=== PATIENT | male | born 1980 | race Caucasian/White ===

== ENCOUNTER 2020-10-30 12:07 | Inpatient (IN) | payer OTHER ==
[~2020-10-30] VITALS: Ht 167.6 cm; Wt 88.9 kg
[2020-10-30] MEDS ORDERED: COZAAR25 MG PO (12:35)
[2020-10-31] MEDS ORDERED: PRILOSEC OTC20 MG PO (08:38)
[2020-10-31] MEDS ORDERED: PERCOCET 5-3251 EACH PO (08:38)
== END 2020-10-31 09:12 | disposition home or self-care (01) | DRG 340 ==
LOC: ER 12:07 → SEC-K 14:12 → O/R 16:18 → SURH 17:04
PROVIDERS: ADMIT Surgery; ATTEND Surgery
PROC: 0DTJ4ZZ Resection of Appendix, Percutaneous Endoscopic Approach (ICD-10-PCS; principal; 2020-10-30 14:00)
DX: K35.33 Acute appendicitis with perforation, localized peritonitis, and gangrene, with abscess (principal); Z20.822 Contact with and (suspected) exposure to COVID-19